=== PATIENT | female | born 1975 | race Caucasian/White ===

== ENCOUNTER 2019-11-30 09:04 | Emergency (ER) | payer BC, SELFPAY ==
--- NOTE | ~2019-11-30 | XR_ITS ---
XR abdomen/kub 1V 11/30/2019 09:45 Indication: Right-sided abdominal pain with hematuria Procedure: KUB Comparison: No prior studies for comparison. Findings: There is a probable right 5 mm UPJ stone. There is a small 2 mm right renal stone. Bowel pa ttern is nonobstructive. Moderate colonic fecal loading. No acute osseous abnormality. Impression: 1: Probable 5 mm right UPJ stone. 2: Right nephrolithiasis. Reviewed, dictated and finalized at location A. UP ASSEMBLER Impression: 1: Probable 5 mm right UPJ stone. 2: Right nephrolithiasis.
[2019-11-30 09:07] VITALS: PULSE 64; RESP 16; TEMP 36.4; O2SAT 100
--- NOTE | 2019-11-30 09:08 | ED.GENADULT ---
HPI - General Adult General Chief complaint: Abdominal Pain Stated complaint: abdominal pain Time Seen by Provider: 11/30/19 09:17 Source: patient Mode of arrival: ambulatory Limitations: no limitations History of Present Illness HPI narrative: 44-year-old female patient presents to the [facility] with complaints of x1 week. Patient states that abdominal pain started last week when she started her menstrual cycle. Patient states that this was pretty normal when she started her menstrual cycle. However she states that usually last for about 24 hours and it has been lasting all week this time. Patient states is kind of a dull pain. Denies any sharp stabbing pain. Denies any nausea, vomiting or diarrhea. Denies any fevers. Patient states she has been taking Tylenol and ibuprofen that has helped with the pain. Patient states that she does not have her left ovary. Related Data Allergies Allergy/AdvReac Type Severity Reaction Status Date / Time No Known Allergies Allergy Unverified 12/16/18 02:11 Review of Systems Review of Systems: Narrative: CONSTITUTIONAL: Denies fever, chills, or sweats. EYES: Denies visual changes, redness, or discharge. ENT: Denies rhinorrhea, congestion, sore throat, or otalgia. CARDIOVASCULAR: Denies chest pain, palpitations, or edema. RESPIRATORY: Denies cough or dyspnea. GASTROINTESTINAL: Positive right abdominal pain/right flank pain, denies nausea, vomiting, or diarrhea. GENITOURINARY: Denies dysuria or hematuria. SKIN: Denies rash or itching. MUSCULOSKELETAL: Denies back pain, joint pain, or myalgia. NEUROLOGIC: Denies headache, numbness, or weakness. PSYCHIATRIC: Denies anxiety or depression. PMFSH Social History Social History Smoking status: Never smoker Alcohol intake: never Comments At the time of my signature I agree with nursing past medical history, surgical, social, and family history. There is no relevant family history pertinent to the presenting complaint. Exam Narrative: Exam Narrative: GENERAL: Well-appearing, well-nourished, and in no acute distress. HEAD: Normocephalic, atraumatic. EYES: PERRLA and EOMI. ENT: Nares clear, no rhinorrhea or epistaxis. Mucous membranes moist. NECK: Supple. No lymphadenopathy CHEST: Clear to auscultation. No respiratory distress. HEART: Regular rate and rhythm. No murmur heard. Normal peripheral pulses. ABDOMEN: Soft, flat, nondistended. No guarding, rebound tenderness, or rigid. No pulsatilla masses. Hyperactive bowel sounds present in all four quadrants. No organomegaly. Negative Omer?s sign. No periumbicial tenderness. No Supra public tenderness or distension. Good femoral pulses bilaterally. No hernia noted. No scars or surface trauma. EXTREMITIES: Normal range of motion. No edema. SKIN: Warm, dry, no rash. NEURO: No focal deficits. Alert and oriented x3. Course Reevaluation(s) Reevaluation #1: He still has notified patient that we did do a test on her which was negative today as well as look at her urine and there is some blood in her urine and just a small trace of leukocytes but since she is asymptomatic with other UTI symptoms I do not think this is necessarily UTI causing her symptoms. Discussed with patient about possibly doing a KUB to look for stone and she is in agreement at this time to rule it out. I will reassess her once the baby has resulted. Date: 11/30/19 Time: 09:34 Reevaluation #2: Notify patient that her x-ray does show some stones to the right side. Discussed with her that we will discharge her home with some Flomax to help propel the stones down so that she is able to pass them I will also give her some [place] for worsening pain. Discussed with her that if the pain is tolerable with the Tylenol and ibuprofen she definitely can continue taking the Tylenol and ibuprofen. Discussed with her I will go ahead and also provide her a strainer so that she may strain
== END 2019-11-30 10:19 | disposition home or self-care (01) ==
PROVIDERS: Emergency Provider Nurse Practitioner Family; PCP Family Medicine
DX: N20.2 Calculus of kidney with calculus of ureter (principal)
CPT/HCPCS: 74018; 81003; 81025; 87086; 87088; 99213; G0463

== ENCOUNTER 2019-12-02 13:21 | Outpatient (CLI) | payer BC, SELFPAY ==
--- NOTE | ~2019-12-02 | CT_ITS ---
EXAMINATION: CT abdomen pelvis wo con DATE: 12/02/2019 13:48 INDICATION: Right flank pain. TECHNIQUE: Computed tomography (CT) of the abdomen and pelvis was performed without intravenous contr ast. Automated exposure control and iterative reconstruction technique were employed. The dose-length product was 172.77 mGy-cm. COMPARISON: None. FINDINGS: The visualized portions of the lung bases demonstrate minimal atelectasis. No pleural effus ion. The heart size is normal. No pericardial effusion. The liver, gallbladder, spleen, pancreas, and adrenal glands are normal. There is a 3 mm stone in right kidney. There is mild right hydronephrosis . There is a 4 mm stone in proximal right ureter. Left kidney is normal. There are no dilated loops o f bowel. There is a small volume of pelvic ascites, likely physiologic. There are no pathologically e nlarged lymph nodes. There is mild lumbar spondylosis. IMPRESSION: 1. 4 mm stone in proximal right ureter with mild right hydronephrosis. 2. 3 mm nonobstructing right kidney stone. Reviewed, dictated and finalized at location A.
== END 2019-12-02 13:22 | disposition home or self-care (01) ==
PROVIDERS: PCP Family Medicine; Visit Provider Family Medicine
DX: N20.2 Calculus of kidney with calculus of ureter (principal)
CPT/HCPCS: 74176

== ENCOUNTER 2019-12-04 15:49 | Outpatient (CLI) | payer BC, SELFPAY ==
--- NOTE | ~2019-12-04 | XR_ITS ---
XR abdomen/kub 1V 12/04/2019 16:18 INDICATION: Flank pain TECHNIQUE: KUB COMPARISON: None FINDINGS: Bowel gas pattern is normal. There is no evidence of free air, mass, organomegaly, ascites or obstruction. There is a punctate right renal stone. There is a new calcification in the pelvis wh ich is obscured by bowel content, suspicious for distal ureteral stone. The bones appear intact. IMPRESSION: 1: Possible small distal right ureteral stone. 2: Right nephrolithiasis. Reviewed, dictated and finalized at location A.
== END 2019-12-04 15:50 | disposition home or self-care (01) ==
PROVIDERS: PCP Family Medicine; Visit Provider Urology
DX: N20.0 Calculus of kidney (principal)
CPT/HCPCS: 74018

== ENCOUNTER 2019-12-06 02:05 | Day surgery (SDC) | payer BC, SELFPAY ==
[2019-12-05 13:44] VITALS: BMI 20.5
[2019-12-06] VITALS (12 sets, daily range): BP systolic 111–158; BP diastolic 74–93; PULSE 46–60; RESP 12–20; TEMP 36.1–37.2; O2SAT 99–100
--- NOTE | ~2019-12-06 | XR_ITS ---
EXAMINATION: XR retrograde pyelogram RT DATE: 12/06/2019 11:08 INDICATION: Right ureteral stone extraction TECHNIQUE: 17 fluoroscopic spot images of the abdomen and pelvis were obtained during procedure perfo rmed by Dr. Mercado. Radiologist was not present for the imaging or procedure. The amount of fluorosco py time used during this procedure was 0.6 minutes. COMPARISON: CT dated 12/02/2019 FINDINGS: Images demonstrate advancement of a catheter and wire into an upper pole calyx of the right kidney wh ich with retrograde contrast administration appears dilated with moderate hydronephrosis. The stone i dentified on prior CT is unable be identified on the fluoroscopic images. Unremarkable the final imag es there appears to be some contrast extravasation at the right renal hilum. IMPRESSION: 1. Fluoroscopy utilized during right ureteral stone extraction. See procedure note for further detail . Reviewed, dictated and finalized at location A. IMPRESSION: 1. Fluoroscopy utilized during right ureteral stone extraction. See procedure n ote for further detail.
--- NOTE | ~2019-12-06 | XR_ITS ---
XR abdomen/kub 1V DATE: 12/06/2019 08:19 INDICATION: Right ureteral calculus TECHNIQUE: AP projection, 2 views COMPARISON: 11/30/2019 KUB 11/28/[address] abdomen pelvis 12/04/2019 KUB FINDINGS: Previously reported 5 mm calcified right ureteropelvic junction stone now overlies the pelv is and distal right ureter. Small calcified stone overlying mid right kidney. Nonspecific bowel gas pattern without evidence of obstruction. IMPRESSION: 5 mm distal right ureteral calcified calculus Very small nonobstructing mid right renal calcified stone Reviewed, dictated and finalized at Location A. Reviewed, dictated and finalized at location A.
--- NOTE | 2019-12-06 08:31 | SUR.PREOP ---
0842- DR. SIMON STATED HE WOULD LIKE TO LOOK AT KUB BEFORE PT GETS CHANGED. PT UPDATED
[2019-12-06] MEDS: LACTATED RINGERS 1,000 ML 30 ML IV CONT ×2 (08:57→11:01)
[2019-12-06 09:17] LABS: Prothrombin Time 12.4 Seconds (11.1-14.7)
--- NOTE | 2019-12-06 09:32 | WPDANESEPPF ---
Anes - Initial Pre Proc Eval Procedure: Operation Date: 12/06/19 10:30 Proposed Procedures p Right Extracorporeal Shock Wave Lithotripsy, Possible Right Ureteroscopy, Possible Right Stone Extraction - Pato Mercado MD Date/Time: 12/06/19 09:32 Surgeon: Pato Mercado MD Pre Op Diagnosis: Kidney Stones Patient Data Age: 44 Gender: F Height: 1.57 m Weight: 50.7 kg Last Vital Signs Temp 37.2 C 12/06/19 09:25 Pulse 60 12/06/19 09:25 Resp 20 12/06/19 09:25 BP 137/86 12/06/19 09:25 Pulse Ox 100 12/06/19 09:25 Allergies Allergy/AdvReac Type Severity Reaction Status Date / Time No Known Allergies Allergy Verified 12/06/19 09:30 Home Medications Medication Instructions Recorded Confirmed Type hydrocodone-acetaminophen [[place]] 1 tablet PO Q6H PRN 3 Days #12 11/30/19 12/05/19 Rx tablet tamsulosin [Flomax] 0.4 mg PO DAILY #10 cap 11/30/19 12/06/19 Rx multivitamin 1 tablet PO DAILY 12/05/19 12/06/19 History Laboratory Tests 12/06/19 09:00 PT 12.4 Seconds Seconds (11.1-14.7) INR 1.0 APTT 27.0 SECONDS SECONDS (22.3-36.8) Patient hx anesthesia problems: none Family hx anesthesia problems: none PMFSH Past Medical History Medical History (Updated 12/05/19 @ 13:01 by Mert Stewart DO) Constipation by delayed colonic transit Mkdaf-Rkhkxxxut-Jjccv (WPW) pattern seen on electrocardiography Surgical History Surgical History (Updated 12/05/19 @ 13:01 by Mert Stewart DO) History of x3 Social History Social History Smoking status: Never smoker Alcohol intake: never Anes - Eval Final PreProcedure Day of Procedure 12/06/19 09:32 Patient weight: normal Heart: regular rate and rhythm Lungs: clear to auscultation and normal air movement Airway: Mallampati scale class III Neurological: alert and oriented Last oral intake: >/= 8 hours ASA classification: III Emergent: no Anesthetic plan: proceed Anesthesia type and monitoring: general LMA and standard monitoring Informed Consent: The patient's anesthetic plan and its attendant risks and benefits were discussed with the patient/family/POA. Questions were solicited and answers provided to the satisfaction of the patient/family/POA.
[2019-12-06] MEDS: ceFAZolin 2 GM/D5W 50 ML 2 GM/50 ML BAG IVPB (10:17)
--- NOTE | 2019-12-06 10:56 | PM.PROC ---
Procedure Note - Detailed Date of procedure: 12/06/19 Pre-op diagnosis: Kidney Stones Post-op diagnosis: same Procedure performed: 1. Cystoscopy, right retrograde pyelography. 2. Right ureteroscopy with stone extraction. Description of procedure: The patient was brought to the operative suite where she is prepped and draped in a routine sterile fashion while in the dorsal lithotomy position after the uneventful induction of a general LMA anesthetic. A 19F rigid cystoscope was placed in the bladder. The patient had no evidence of urethral stricture or bladder neck contracture. The bladder mucosa was endoscopically normal without hyperemia or neoplasm. There was a single, orthotopic ureteral orifice bilaterally. A 0.035 glidewire was advanced into the right renal pelvis under fluoroscopy. The distal ureter was dilated with an 8F/10F ureteral dilator. Ureteroscopy was undertaken with a short, tapered, semi-rigid ureteroscope and then a 7.5F flexible ureteroscope and the stone was extracted with ease using a 1.9F Escape disposable stone basket. Due to the ease of this manipulation I opted not to place a ureteral stent. The patient's bladder was emptied and was taken to the recovery room having tolerated this procedure well. Anesthesia: GLMA Surgeon: Pato Mercado MD Estimated blood loss (mL): 0 Drains: No Packing: No Pathology: yes Complications: No immediate complications Condition: stable Disposition: PACU
--- NOTE | 2019-12-06 11:18 | SUR.PHASEI ---
1105-NO DRAINAGE NOTED FROM MEATUS. ABD. SOFT.
--- NOTE | 2019-12-06 11:18 | SUR.PHASEI ---
1111-REACTING, ORAL AIRWAY REMOVED, RESPIRATIONS EVEN/NONLABORED.
== END 2019-12-06 13:34 | disposition home or self-care (01) ==
PROVIDERS: PCP Family Medicine; Visit Provider Urology
PROC: (CPT 50590; principal; 2019-12-06 10:30)
DX: N20.1 Calculus of ureter (principal); K59.01 Slow transit constipation; I45.6 Pre-excitation syndrome
CPT/HCPCS: 52352; 36415; 74018; 74420; 82365; 85610; 85730; 88300; A9270; C1769; J0131; J0690; J1100; J1885; J2250; J2405; J2704; J3010; J7120

== ENCOUNTER 2019-12-08 04:58 | Emergency (ER) | payer BC, SELFPAY ==
--- NOTE | ~2019-12-08 | XR_ITS ---
XR abdomen/kub 1V DATE: 12/08/2019 06:15 INDICATION: Right flank pain TECHNIQUE: AP view COMPARISON: 12/06/2019 KUB 12/02/[address] abdomen pelvis FINDINGS: A small calcification overlies the mid right kidney consistent with previously documented n onobstructing right renal calculus on 12/12/2019 CT abdomen pelvis examination. No other urinary tract calcification is evident on this examination. There is a prominent amount fecal material within the colon but no bowel obstruction. IMPRESSION: Small nonobstructing mid right renal calcified stone; no other definite urinary tract geoffrey culus is detected. Noncontrast CT abdomen pelvis would be more sensitive for detection of any residua l ureteral calculus on the right. Reviewed, dictated and finalized at Location A. Reviewed, dictated and finalized at location A. IMPRESSION: Small nonobstructing mid right renal calcified stone; no other defi nite urinary tract calculus is detected. Noncontrast CT abdomen pelvis would be more sensitive for detection of any residual ureteral calculus on the right.
[2019-12-08 05:04] VITALS: BP 141/90; PULSE 56; RESP 18; TEMP 37; O2SAT 100
--- NOTE | 2019-12-08 05:21 | ED.ABDPAIN ---
HPI - Abdominal Pain General Chief Complaint: Abdominal Pain Stated Complaint: R FLANK PAIN Time Seen by Provider: 12/08/19 05:13 Source: patient Mode of arrival: ambulatory Limitations: no limitations History of Present Illness HPI narrative: Patient is a 44-year-old female who presents to the emergency department with complaint of right flank pain. Patient reports onset of symptoms a couple of weeks ago. Patient was seen in urgent care on 11/30/2019 and KUB showed evidence of right 5 mm UPJ stone. There was also a 2 mm right renal stone noted. Patient followed up with her primary care physician on 12/02/2019. Primary care physician ordered CT scan of the abdomen and pelvis which was completed on 12/02/2019 and showed evidence of 4 mm stone in the proximal right ureter and a 3 mm nonobstructing right kidney stone. Stone was still noted to be present in ureter on KUB ordered by urologist on 12/04/2019. Patient underwent cystoscopy with right retrograde pyelography, right ureteroscopy, and stone extraction. Patient had done well postoperatively until awaking from sleep at 3:00 this morning with recurrent right flank pain. Patient has had nausea and vomiting. She denies any dysuria, fever, chills, or sweats. Patient tried taking hydrocodone at home, but vomited shortly thereafter. Patient was able to take a Flomax and an extra strength Tylenol with small sips of water. Patient did not have relief of symptoms, thus presented to the ED for evaluation. MD elicited complaint: flank pain Pertinent past history: kidney stones Onset (ago): hour(s) Pain Consistency: constant Location: R flank Relieving factors: nothing Associated symptoms: nausea and vomiting Treatments prior to arrival: prescription analgesics Related Data Home Medications Medication Instructions Recorded Confirmed multivitamin 1 tablet PO DAILY 12/05/19 12/06/19 Allergies Allergy/AdvReac Type Severity Reaction Status Date / Time No Known Allergies Allergy Verified 12/06/19 09:30 Review of Systems Review of Systems: All systems reviewed & are unremarkable except as noted in HPI and below Constitutional: Constitutional: Denies chills and Denies fever(s) Gastrointestinal: Gastrointestinal: Reports abdominal pain, Reports nausea and Reports vomiting Genitourinary: Genitourinary: Denies hematuria, Denies dysuria and Reports flank pain [facility] Past Medical History Medical History (Updated 12/08/19 @ 06:21 by Dedra Pineda MD) Constipation by delayed colonic transit Kidney stones Jpeka-Wqwufbwcc-Yrbvc (WPW) pattern seen on electrocardiography Surgical History Surgical History (Updated 12/08/19 @ 05:33 by Dedra Pineda MD) History of x3 History of cystoscopy With ureteroscopy and stone removal History of left oophorectomy Social History Social History Smoking status: Never smoker Alcohol intake: never Gender identity (if verbalized by the patient): Female Exam Const: General: cooperative, no acute distress and alert Nutritional Appearance: well nourished Orientation/consciousness: patient oriented x3 Limitations: no limitations HENMT: Mouth: Yes lip normal and Yes moist mucous membranes Resp: Effort & Inspection: normal respiratory effort Auscultation: clear to auscultation bilaterally Cardio: Rate: regular rate Rhythm: regular rhythm GI: GI Palp: Yes Soft to palpation and Yes Tenderness to palpation present (GI) (Right flank) Auscultation: normal bowel sounds : General: Yes no CVA tenderness Skin: General skin exam: normal color Neuro: General: patient oriented x3 Cognition (Neuro): normal cognition Speech: normal speech Extrem: General: normal to inspection, full ROM and no clubbing, cyanosis or edema Psych: Mental Status: mental status grossly normal Affect: normal affect Attitude: cooperative Course Course Emergency Course: [place]
[2019-12-08 05:23] LABS: Basophils Absolute Auto 0.1 K/mm3 (0.0-0.1); Basophils Percent Auto 0.5 % (0.2-1.2); Eosinophils Absolute Auto 0.1 K/mm3 (0-0.3); Eosinophils Percent Auto 1.4 % (0-4.4); Hematocrit 35.8 % (37.0-47.0); Hemoglobin 11.6 g/dL (12.0-15.0); Immature Granulocyte Absolute 0.02 K/mm3 (0.00-0.031); Immature Granulocyte Percent A 0.2 % (0-0.5); Lymphocytes Absolute Auto 2.18 K/mm3 (0.9-3.2); Lymphocytes Percent Auto 21.9 % (18.3-44.2); Mean Corpuscular HGB Conc 32.4 g/dl (32-36); Mean Corpuscular Hemoglobin 28.4 pg (26-34); Mean Corpuscular Volume 87.5 fl (80-100); Mean Platelet Volume 11.7 fl (7.4-10.4); Monocytes Absolute Auto 0.8 K/mm3 (0.1-0.6); Neutrophils Absolute Auto 6.8 K/mm3 (1.3-6.7); Platelet Count Result 160 k/mm3 (150-375); Red Blood Count 4.09 M/mm3 (4.2-5.4); Red Cell Distribution Width 12.9 % (11.5-14.5)
[2019-12-08] MEDS: KETOROLAC 30 MG/ML VIAL (*BKC) IV PUSH (05:24)
[2019-12-08] MEDS: ONDANSETRON INJ 4 MG/2 ML VIAL IV PUSH (05:32)
[2019-12-08 05:38] LABS: Alanine Aminotransferase 25 U/L (4-35); Albumin Level 3.9 g/dL (3.5-5.1); Alkaline Phosphatase 47 U/L (38-126); Aspartate Amino Transferase 31 U/L (14-36); Bilirubin,Total 0.1 mg/dL (0.2-1.3); Blood Urea Nitrogen 11 mg/dL (7-17); Calcium 8.5 mg/dL (8.4-10.2); Carbon Dioxide 24 mmol/L (22-30); Chloride 107 mmol/L (98-107); Estimated Glomerular Filt Rate > 60; Glucose 97 mg/dL (65-105); Lipase 83 U/L (23-300); Potassium 3.4 mmol/L (3.4-5.0); Sodium 140 mmol/L (137-145)
[2019-12-08 05:50] LABS: Add Urine Microscopic? YES; Appearance Urine Cloudy (Clear); Bilirubin Urine Negative (Negative); Blood Urine 3+ (Negative); Color Urine Yellow (Yellow); Glucose Urine UA Negative (Negative); Ketones Urine Negative (Negative); Leukocyte Esterase Ur Negative LEU/UL (Negative); Mucus Urine Rare /lpf; Nitrate Urine Negative (Negative); Protein Urine 2+ mg/dL (Negative); RBC Urine >75 /hpf (0-2); Specific Grav Ur 1.028 (1.001-1.035); Squamous Epithelial Cell Urine Few /hpf (Few); Urobilinogen Urine Negative mg/dL (<2.0); WBC Urine 0-3 /hpf
[2019-12-08 06:36] VITALS: BP 132/77; PULSE 78; RESP 18; O2SAT 98
== END 2019-12-08 06:45 | disposition home or self-care (01) ==
PROVIDERS: Emergency Provider Emergency Medicine; PCP Family Medicine
DX: N20.0 Calculus of kidney (principal)
CPT/HCPCS: 36415; 74018; 80053; 81001; 83690; 85025; 96374; 96375; 99284; J1885; J2405

== ENCOUNTER 2020-02-26 17:44 | Outpatient (CLI) | payer BC, SELFPAY ==
--- NOTE | ~2020-02-26 | XR_ITS ---
EXAMINATION: XR abdomen/kub 1V DATE: 02/26/2020 18:16 INDICATION: Right kidney stone. TECHNIQUE: A supine view of the abdomen on 2 radiographs was obtained. COMPARISON: CT abdomen and pelvis 12/02/2019, abdomen radiograph 12/08/2019 FINDINGS: There are no dilated loops of bowel. There is a 3 mm stone in right kidney. IMPRESSION: 1. 3 mm stone in right kidney. Reviewed, dictated and finalized at location A.
== END 2020-02-26 17:45 | disposition home or self-care (01) ==
LOC: ANHIMG 17:51
PROVIDERS: PCP Family Medicine; Visit Provider Urology
DX: N20.0 Calculus of kidney (principal)
CPT/HCPCS: 74018

== ENCOUNTER 2022-06-16 11:01 | Outpatient (CLI) | payer BC, SELFPAY ==
[2022-06-16 18:47] LABS: Basophils Absolute Auto 0.1 K/mm3 (0.0-0.1); Basophils Percent Auto 0.7 % (0.2-1.2); Eosinophils Absolute Auto 0.1 K/mm3 (0-0.3); Eosinophils Percent Auto 1.4 % (0-4.4); Hematocrit 42.1 % (37.0-47.0); Hemoglobin 13.8 g/dL (12.0-15.0); Immature Granulocyte Absolute 0.01 K/mm3 (0.00-0.031); Immature Granulocyte Percent A 0.1 % (0-0.5); Lymphocytes Absolute Auto 2.24 K/mm3 (0.9-3.2); Lymphocytes Percent Auto 32.3 % (18.3-44.2); Mean Corpuscular HGB Conc 32.8 g/dl (32-36); Mean Corpuscular Hemoglobin 28.7 pg (26-34); Mean Corpuscular Volume 87.5 fl (80-100); Mean Platelet Volume 12.1 fl (7.4-10.4); Monocytes Absolute Auto 0.7 K/mm3 (0.1-0.6); Monocytes Percent Auto 9.8 % (2.6-8.5); Neutrophils Absolute Auto 3.9 K/mm3 (1.3-6.7); Neutrophils Percent Auto 55.7 % (45.5-73.1); Platelet Count Result 248 k/mm3 (150-375); Red Blood Count 4.81 M/mm3 (4.2-5.4); Red Cell Distribution Width 13.1 % (11.5-14.5); White Blood Count 6.9 K/mm3 (4.5-10.0)
[2022-06-16 21:15] LABS: LDL Cholesterol Direct 71 mg/dL
[2022-06-16 21:27] LABS: Alanine Aminotransferase 24 U/L (6-35); Albumin Level 4.5 g/dL (3.5-5.1); Alkaline Phosphatase 76 U/L (38-126); Anion Gap 9 mmol/L (8-16); Aspartate Amino Transferase 41 U/L (14-36); Blood Urea Nitrogen 8 mg/dL (7-17); Calcium 9.6 mg/dL (8.4-10.2); Carbon Dioxide 28 mmol/L (22-30); Chloride 103 mmol/L (98-107); Cholesterol 161 mg/dL (0-200); Estimated Glomerular Filt Rate > 60; Glucose 79 mg/dL (65-110); HDL Direct 67 mg/dL; Potassium 4.3 mmol/L (3.4-5.0); Sodium 140 mmol/L (137-145); Triglycerides 158 mg/dL (<150)
[2022-06-16 22:09] LABS: Bilirubin,Total 0.4 mg/dL (0.2-1.3)
== END 2022-06-16 11:02 | disposition home or self-care (01) ==
LOC: ANHGOSHLAB 11:04
PROVIDERS: PCP Family Medicine; Visit Provider Family Medicine
DX: Z00.00 Encounter for general adult medical examination without abnormal findings (principal)
CPT/HCPCS: 36415; 80053; 80061; 85025

== ENCOUNTER → 2022-06-16 12:05 | Outpatient (CLI) | payer BC, SELFPAY ==
--- NOTE | ~2022-06-16 | XR_ITS ---
XR lumbar spine 2-3V DATE: 06/16/2022 12:26 INDICATION: Low back pain TECHNIQUE: AP, lateral, coned lateral lumbosacral views COMPARISON: None FINDINGS: There is mild thoracolumbar dextroscoliosis. No fracture or bone destruction. No spondylolisthesis. The lumbar pedicles are intact. Mild loss of height at L4-5 interspace. Lumbar and lumbosacral interspaces appear relatively preserve d otherwise. Sacroiliac joints are unremarkable. IMPRESSION: Mild thoracolumbar dextro scoliosis Mild loss of height at L4-5 interspace Reviewed, dictated and finalized at location B.
--- NOTE | ~2022-06-16 | XR_ITS ---
XR thoracic spine 2V DATE: 06/16/2022 12:26 INDICATION: Back pain. No injury. TECHNIQUE: AP, lateral views COMPARISON: None FINDINGS: No fracture or dislocation or bone destruction. The thoracic pedicles are intact. No parasp inal soft tissue thickening. There is minimal levoscoliosis of the upper thoracic spine and minimal dextro scoliosis of the lower thoracic spine. IMPRESSION: Minimal scoliosis Reviewed, dictated and finalized at location B. IMPRESSION: Minimal scoliosis
== END ==
PROVIDERS: PCP Physician Assistant; Visit Provider Physician Assistant
DX: M54.50 Low back pain, unspecified (principal); M41.9 Scoliosis, unspecified
CPT/HCPCS: 72070; 72100

== ENCOUNTER → 2023-04-14 15:17 | Outpatient (CLI) | payer BC, SELFPAY ==
--- NOTE | ~2023-04-14 | US_ITS ---
EXAMINATION: US renal BI DATE: 04/14/2023 15:39 INDICATION: RT FLANK PAIN, HX STONES TECHNIQUE: Multiple grayscale and Doppler ultrasound images of the kidneys were obtained. COMPARISON: X-ray abdomen 02/26/2020; CT abdomen and pelvis 12/02/2019. FINDINGS: The right kidney measures 9.6 x 4.0 x 4.4 cm. The left kidney measures 10.6 x 4.3 x 3.4 cm. The kidne ys demonstrate normal parenchymal echogenicity. 4 mm echogenic focus in the right mid kidney, without clinical artifact or posterior shadowing. Irregular 3 mm echogenicity in the left midpole with twink le artifact. There is no hydronephrosis. The bladder is normal. IMPRESSION: Demonstration of the known 3-4 mm right midpole renal calculus. Possible interval development of a 3 mm left midpole calculus. Reviewed, dictated and finalized at location K. IMPRESSION: Demonstration of the known 3-4 mm right midpole renal calculus. Possible interv al development of a 3 mm left midpole calculus.
== END ==
PROVIDERS: PCP Family Medicine; Visit Provider Family Medicine
DX: R10.9 Unspecified abdominal pain (principal); N20.0 Calculus of kidney
CPT/HCPCS: 76775

== ENCOUNTER 2023-08-16 03:33 | Day surgery (SDC) | payer BC, SELFPAY ==
[2023-08-04 15:35] VITALS: BMI 20.5
--- NOTE | 2023-08-14 08:51 | SUR.PREOP ---
Patient called regarding upcoming procedure. Reviewed preop instructions, appointment times, and procedure prep.
[2023-08-16 06:22] VITALS: BP 125/90; PULSE 81; RESP 18; TEMP 36.2; O2SAT 100; BMI 20.5
--- NOTE | 2023-08-16 06:26 | WPDANESEPPF ---
Anes - Initial Pre Proc Eval Procedure: Operation Date: 08/16/23 07:30 Proposed Procedures p Screening Colonoscopy - Cristobal Irwin MD Date/Time: 08/16/23 06:26 Surgeon: Cristobal Irwin MD Pre Op Diagnosis: neoplasm screening Patient Data Age: 48 Gender: F Height: 1.57 m Weight: 50.9 kg Last Vital Signs Temp 36.2 C L 08/16/23 06:22 Pulse 81 08/16/23 06:22 Resp 18 08/16/23 06:22 BP 125/90 08/16/23 06:22 Pulse Ox 100 08/16/23 06:22 O2 Del Method Room Air 08/16/23 06:22 Allergies Allergy/AdvReac Type Severity Reaction Status Date / Time No Known Allergies Allergy Verified 08/16/23 06:21 Home Medications Medication Instructions Recorded Confirmed Type multivitamin 1 tablet PO DAILY 12/05/19 08/16/23 History albuterol sulfate 90 mcg/actuation 1 puff inhalation Q4H PRN 10/31/22 08/16/23 Rx aerosol inhaler shortness of breath or wheezing #8.5 grams fluticasone propionate 50 1 spray intranasal Q12H #16 mL 10/31/22 08/16/23 Rx mcg/actuation nasal spray,suspension (Flonase Allergy Relief) Patient hx anesthesia problems: none Family hx anesthesia problems: none Results Review: All pre-operative results and documents have been reviewed as part of the pre-operative evaluation. [facility] Past Medical History Medical History Constipation by delayed colonic transit Kidney stones Yqobh-Ezozehchx-Aboze (WPW) pattern seen on electrocardiography Surgical History Surgical History History of x3 History of cystoscopy With ureteroscopy and stone removal History of left oophorectomy Social History Social History Social History: Caffeine-coffee daily Smoking status: Never smoker Alcohol intake: current Alcohol use details: socially on occasion Substance use: never Substance use type: does not use Lack of Transportation: No Lack of Food: Never True Current Housing: I Have Housing Concerned About Future Housing: No Difficulty Paying Gas/Electric Bills: No Difficulty Paying for Meds: No Currently Unemployed: No Education: Master's Degree or Higher Difficulty w/ Childcare or Family Care: No Living arrangements: with family Gender identity (if verbalized by the patient): Female Spiritual care concerns: No Anes - Eval Final PreProcedure Day of Procedure 08/16/23 06:26 Patient weight: thin Heart: regular rate and rhythm Lungs: clear to auscultation Airway: Mallampati scale class II Neurological: alert and oriented Last oral intake: >/= 8 hours ASA classification: III Emergent: no Anesthetic plan: proceed Anesthesia type and monitoring: general GIVS and standard monitoring Results Review: All pre-operative results and documents have been reviewed as part of the pre-operative evaluation. Informed Consent: The patient's anesthetic plan and its attendant risks and benefits were discussed with the patient/family/POA. Questions were solicited and answers provided to the satisfaction of the patient/family/POA.
[2023-08-16] MEDS: LACTATED RINGERS 1,000 ML 150 ML IV CONT (06:34)
--- NOTE | 2023-08-16 07:22 | PM.HPGS ---
History of Present Illness History of Present Illness Consent: Risks, benefits, and alternatives have been discussed and questions answered. Patient agrees to proceed with procedure. Chief complaint: neoplasm screening Narrative: Glenda Hutchinson is a 48 year old female here for screening colonoscopy, had one about 20 years ago Review of Systems Constitutional: Constitutional: Denies headache(s) and Denies weakness Eyes: Eyes: Denies blurry vision ENT: Reports Normal hearing present, Denies headache(s) and Denies neck pain Cardiovascular: Cardiovascular: Denies chest pain and Denies dyspnea Respiratory: Respiratory: Denies dyspnea Gastrointestinal: Gastrointestinal: Reports no additional gastrointestinal complaints Genitourinary: Genitourinary: Denies dysuria Musculoskeletal: Musculoskeletal: Denies neck pain Integumentary/Breasts: Skin/Breast: Denies dry skin Neurologic: Reports Normal hearing present, Denies headache(s) and Denies weakness Psychiatric: Psychiatric: Denies anxiety Endocrine: Endocrine: Denies change in body appearance Hematologic/Lymphatic: Hematologic/Lymphatic: Denies easy bleeding Allergic/Immunologic: Allergic/Immunologic: Denies urticaria PMFSH Past Medical History Medical History (Updated 08/16/23 @ 07:23 by Cristobal Irwin MD) Colon cancer screening Constipation by delayed colonic transit Kidney stones 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 Surgical History Surgical History History of x3 History of cystoscopy With ureteroscopy and stone removal History of left oophorectomy Social History Social History Social History: Caffeine-coffee daily Smoking status: Never smoker Alcohol intake: current Alcohol use details: socially on occasion Substance use: never Substance use type: does not use Lack of Transportation: No Lack of Food: Never True Current Housing: I Have Housing Concerned About Future Housing: No Difficulty Paying Gas/Electric Bills: No Difficulty Paying for Meds: No Currently Unemployed: No Education: Master's Degree or Higher Difficulty w/ Childcare or Family Care: No Living arrangements: with family Gender identity (if verbalized by the patient): Female Spiritual care concerns: No Meds Home Medications and Allergies Home Medications Medication Instructions Recorded Confirmed Type multivitamin 1 tablet PO DAILY 12/05/19 08/16/23 History albuterol sulfate 90 mcg/actuation 1 puff inhalation Q4H PRN 10/31/22 08/16/23 Rx aerosol inhaler shortness of breath or wheezing #8.5 grams fluticasone propionate 50 1 spray intranasal Q12H #16 mL 10/31/22 08/16/23 Rx mcg/actuation nasal spray,suspension (Flonase Allergy Relief) Allergies Allergy/AdvReac Type Severity Reaction Status Date / Time No Known Allergies Allergy Verified 08/16/23 06:21 Vital Signs Vital Signs - 24 hr 08/16/23 06:22 Temperature 97.1 F L Pulse Rate 81 Respiratory Rate 18 Blood Pressure 125/90 Pulse Oximetry 100 Oxygen Delivery Room Air Exam Const: General: comfortable and no acute distress HENMT: Face/Nose/Sinus: Normal nares present Eyes: General: appearance normal, both eyes and all related structures Neck: Neck: no JVD Resp: Auscultation: clear to auscultation bilaterally Cardio: Rate: regular rate Rhythm: regular rhythm GI: Inspection: non-distended GI Palp: Yes Soft to palpation Skin: General skin exam: normal color Neuro: General: gait normal Speech: normal speech Extrem: General: normal to inspection Psych: Mental Status: mental status grossly normal Assessment and Plan Assessment and plan (1) Colon cancer screening: Code(s): Z12.11 - Encounter for screening for malignant neoplasm of colon Status: Acute
[2023-08-16 07:48] VITALS: BP 97/65; PULSE 66; RESP 19; O2SAT 99
[2023-08-16 07:58] VITALS: BP 93/64; PULSE 66; RESP 20; O2SAT 99
[2023-08-16 08:08] VITALS: BP 100/64; PULSE 62; RESP 18; O2SAT 99
== END 2023-08-16 08:10 | disposition home or self-care (01) ==
PROVIDERS: PCP Family Medicine; Visit Provider Internal Medicine Gastroenterology
PROC: 0DJD8ZZ Inspection of Lower Intestinal Tract, Via Natural or Artificial Opening Endoscopic (ICD-10-PCS; CPT 45378; principal; 2023-08-16 07:30)
DX: Z12.11 Encounter for screening for malignant neoplasm of colon (principal); K57.30 Diverticulosis of large intestine without perforation or abscess without bleeding; K64.8 Other hemorrhoids; Z79.51 Long term (current) use of inhaled steroids
CPT/HCPCS: 45378; J2704; J7120

== ENCOUNTER 2024-04-24 15:52 | Outpatient (CLI) | payer BC, SELFPAY ==
[2024-04-24 19:59] LABS: Basophils Absolute Auto 0.1 K/mm3 (0.0-0.1); Basophils Percent Auto 0.8 % (0.2-1.2); Eosinophils Absolute Auto 0.1 K/mm3 (0-0.3); Eosinophils Percent Auto 1.2 % (0-4.4); Hematocrit 41.1 % (37.0-47.0); Hemoglobin 13.5 g/dL (12.0-15.0); Immature Granulocyte Absolute 0.01 K/mm3 (0.00-0.031); Immature Granulocyte Percent A 0.2 % (0-0.5); Lymphocytes Absolute Auto 2.65 K/mm3 (0.9-3.2); Lymphocytes Percent Auto 39.8 % (18.3-44.2); Mean Corpuscular HGB Conc 32.8 g/dl (32-36); Mean Corpuscular Hemoglobin 28.7 pg (26-34); Mean Corpuscular Volume 87.3 fl (80-100); Mean Platelet Volume 11.5 fl (7.4-10.4); Monocytes Absolute Auto 0.6 K/mm3 (0.1-0.6); Monocytes Percent Auto 8.6 % (2.6-8.5); Neutrophils Absolute Auto 3.3 K/mm3 (1.3-6.7); Neutrophils Percent Auto 49.4 % (45.5-73.1); Platelet Count Result 213 k/mm3 (150-375); Red Blood Count 4.71 M/mm3 (4.2-5.4); Red Cell Distribution Width 12.2 % (11.5-14.5); White Blood Count 6.7 K/mm3 (4.5-10.0)
[2024-04-24 21:02] LABS: Alanine Aminotransferase 24 U/L (6-35); Albumin Level 4.9 g/dL (3.5-5.1); Alkaline Phosphatase 61 U/L (38-126); Anion Gap 10 mmol/L (4-12); Aspartate Amino Transferase 45 U/L (14-36); Bilirubin,Total 0.7 mg/dL (0.2-1.3); Blood Urea Nitrogen 11 mg/dL (7-17); Calcium 9.7 mg/dL (8.4-10.2); Carbon Dioxide 29 mmol/L (22-30); Chloride 100 mmol/L (98-107); Cholesterol 191 mg/dL (0-200); Estimated Glomerular Filt Rate > 60; Glucose 82 mg/dL (65-110); HDL Direct 85 mg/dL; Potassium 4.5 mmol/L (3.4-5.0); Sodium 139 mmol/L (137-145); Triglycerides 71 mg/dL (<150)
[2024-04-24 21:13] LABS: LDL Cholesterol Direct 83 mg/dL
[2024-04-24 21:45] LABS: Hepatitis C Virus Antibody Negative (Negative)
== END 2024-04-24 15:53 | disposition home or self-care (01) ==
LOC: ANHGOSHLAB 15:53
PROVIDERS: PCP Family Medicine; Visit Provider Family Medicine
DX: Z00.00 Encounter for general adult medical examination without abnormal findings (principal); Z11.59 Encounter for screening for other viral diseases
CPT/HCPCS: 36415; 80053; 80061; 84443; 85025; 86803

== ENCOUNTER 2024-04-30 08:35 | Outpatient (CLI) | payer BC, SELFPAY ==
--- NOTE | ~2024-04-30 | US_ITS ---
Limited Abdominal Sonogram: Real-time sonographic imaging of the right upper quadrant was performed. Clinical History: Abnormal serum enzyme levels Findings: The liver appears normal with no evidence of mass lesion or bile duct dilatation. Main por gerber vein demonstrates normal direction of flow. The gallbladder is well distended, and appears normal with no evidence of gallstone or wall thickening. The common bile duct measures 4 mm. The visualize d pancreas, aorta, and IVC are unremarkable. Impression: No significant abnormality seen. Reviewed, dictated and finalized at location M. Impression: No significant abnormality seen.
== END 2024-04-30 08:36 ==
LOC: GOSHIMG 08:36
PROVIDERS: PCP Family Medicine; Visit Provider Family Medicine
DX: R74.8 Abnormal levels of other serum enzymes (principal)
CPT/HCPCS: 76705